=== PATIENT | female | born 1975 | race Caucasian/White ===

== ENCOUNTER → 2017-11-24 12:06 | Outpatient (CLI) | payer BC, SELFPAY ==
--- NOTE | 2017-11-24 | DI.US.S_ITS ---
PROCEDURE: US PELVIC COMPLETE INDICATIONS: PELVIC PAIN TECHNIQUE: Real-time scanning was performed of the pelvic organs, with image documentation. Additional endovaginal scanning was necessary due to incomplete visualization of the adnexal and endometrial structures by transabdominal scanning. COMPARISON: [facility], [place], PELVIC COMPLETE, 08/08/2012, 13:40. [facility], [place], PELVIC COMPLETE, 08/11/2012, 14:07. [facility], [place], PELVIC COMPLETE, 12/27/2015, 8:00. FINDINGS: Transabdominal scanning: Limited scanning through the kidneys shows no hydronephrosis. No pathologic free abdominal or pelvic fluid. Endovaginal scanning: Uterus: Uterus is normal in size at 11.2 x 8 x 9 cm. The endometrial stripe is not well seen, secondary to the patient's fibroids. Hypoechoic uterine lesions are seen, which are attributed to fibroids. They measure as follows: Posterior mid uterus, 2.2 x 1.6 x 2.8 cm Mid anterior uterus, 5.2 x 4.7 x 5.1 cm Mid anterior uterus, 2.5 x 1.7 x 1.9 cm. Ovaries: Neither ovary can be seen. No adnexal masses are seen. IMPRESSION: Uterine fibroids are seen, which are similar to the prior examination. Dictated by: Jose Alberto Walker M.D. on 11/24/2017 at 12:17 Approved by: Jose Albetro Walker M.D. on 11/24/2017 at 12:20
== END ==
PROVIDERS: Family Provider Naturopath; PCP Nurse Practitioner Family; Visit Provider Naturopath
DX: D25.9 Leiomyoma of uterus, unspecified (principal); R10.2 Pelvic and perineal pain
CPT/HCPCS: 76830; 76856

== ENCOUNTER → 2018-11-18 15:24 | Outpatient (CLI) | payer BC, SELFPAY ==
[2018-11-18 19:42] LABS: Add Manual Diff / Slide Review NO; Basophils Absolute Auto 0 /uL (0-100); Basophils Percent Auto 0.6 % (0-2); Eosinophils Absolute Auto 100 /uL (0-450); Eosinophils Percent Auto 0.9 % (2-4); Hematocrit 39.1 % (36-46); Hemoglobin 13.4 g/dL (12.0-16.0); Lymphocytes Absolute Auto 2100 /uL (1100-4500); Mean Corpuscular HGB Conc 34.3 % (30-36); Mean Corpuscular Hemoglobin 31.9 PG (26-34); Mean Corpuscular Volume 92.9 fL (80-100); Monocytes Absolute Auto 400 /uL (0-900); Monocytes Percent Auto 6.5 % (3-14); Neutrophils Absolute Auto 3600 /uL (1500-7000); Platelet Count 209 X10^3/uL (150-400); Red Blood Cell Count 4.21 X10^6/uL (4.0-5.2); Red Cell Distribution Width 12.6 % (11.6-14.8); White Blood Cell Count 6.3 X10^3/uL (4.5-11.0)
[2018-11-18 20:17] LABS: Free T3, Triiodothyronine Free 3.22 pg/mL (2.77-5.27); Free T4, Direct Thyroxine 1.08 ng/dL (0.78-2.19)
[2018-11-18 20:31] LABS: Thyroid Stimulating Hormone 2.65 uIU/mL (0.47-4.68)
[2018-11-18 20:35] LABS: Ferritin 42.1 ng/mL (6.27-137)
[2018-11-22 15:54] LABS: Thyroid Peroxidase Antibodies 2 IU/mL (< 9)
== END ==
PROVIDERS: PCP Naturopath; Visit Provider Naturopath
DX: K59.00 Constipation, unspecified (principal); R53.83 Other fatigue; Z13.29 Encounter for screening for other suspected endocrine disorder
CPT/HCPCS: 36415; 82728; 84439; 84443; 84481; 85025; 86376

== ENCOUNTER 2018-12-01 14:35 | Emergency (ER) | payer BC, SELFPAY ==
[2018-12-01 14:37] VITALS: BP 148/78; PULSE 85; RESP 20; TEMP 36.2; O2SAT 100; BMI 20.9
--- NOTE | 2018-12-01 14:58 | DI.US.S_ITS ---
PROCEDURE: US ABDOMEN COMPLETE INDICATIONS: ABDOMINAL PAIN TECHNIQUE: Real-time scanning was performed of the abdominal and retroperitoneal organs, with image documentation. COMPARISON: None. FINDINGS: Liver: Liver is normal in size and only mildly heterogeneous in echotexture, likely due to fatty infiltration. Gallbladder: The gallbladder is free of inflammation or calculus. Biliary ducts: Intrahepatic bile ducts are non-dilated. Extrahepatic bile duct caliber measures 3.2-4.2 mm. Normal is 6-7 mm or less in diameter, or 10 mm or less post-cholecystectomy. Pancreas: Visualized portions of the pancreas are sonographically normal. Spleen: Spleen is normal in size and homogeneous in echotexture. Kidneys: Kidneys are normal in size and echotexture. Right kidney measures 10.1 cm long; left kidney measures 11.1 cm long. No hydronephrosis or nephrolithiasis. No solid masses. Aorta: Visualized aorta is normal in caliber at less than 3 cm. Iliacs: Proximal common iliac arteries are normal in caliber at less than 2.5 cm. IVC: Intrahepatic inferior vena cava is patent. Miscellaneous: No free abdominal fluid. IMPRESSION: Quality visualization is somewhat limited by presence of prominent bowel gas. No ascites is found. There is a mild degree of increased echotexture of the liver parenchyma, likely due to mild fatty infiltration. No biliary distention is found. Given the presence of relatively extensive bowel gas if there are clinical signs and symptoms of underlying infection or neoplasm supplementing this ultrasound with contrast-enhanced CT scanning either now or electively may become necessary. Dictated by: Nguyễn Rodriguez M.D. on 12/01/2018 at 16:53 Approved by: Nguyễn Rodriguez M.D. on 12/01/2018 at 16:55
[2018-12-01 15:01] LABS: Add Manual Diff / Slide Review NO; Basophils Absolute Auto 0 /uL (0-100); Basophils Percent Auto 0.5 % (0-2); Eosinophils Absolute Auto 100 /uL (0-450); Eosinophils Percent Auto 0.8 % (2-4); Hemoglobin 13.5 g/dL (12.0-16.0); Lymphocytes Absolute Auto 1600 /uL (1100-4500); Lymphocytes Percent Auto 27.2 % (25-40); Mean Corpuscular HGB Conc 34.5 % (30-36); Mean Corpuscular Volume 92.7 fL (80-100); Monocytes Absolute Auto 600 /uL (0-900); Monocytes Percent Auto 9.4 % (3-14); Neutrophils Absolute Auto 3700 /uL (1500-7000); Neutrophils Percent Auto 62.1 % (50-75); Platelet Count 228 X10^3/uL (150-400); Red Blood Cell Count 4.21 X10^6/uL (4.0-5.2); Red Cell Distribution Width 13.1 % (11.6-14.8)
[2018-12-01 15:06] LABS: Bacteria Urine None Seen; WBC Urine None Seen (0-5/HPF)
[2018-12-01 15:12] LABS: Alanine Aminotransferase 32 IU/L (9-52); Albumin 4.3 g/dL (3.5-5.0); Albumin Globulin Ratio 1.4 (1.0-2.8); Alkaline Phosphatase 49 U/L (38-126); Aspartate Aminotransferase 33 IU/L (14-36); BUN Creatinine Ratio 15.7 (6-22); Bilirubin Total 0.6 mg/dL (0.2-1.3); Blood Urea Nitrogen 11 mg/dL (7-17); Calcium 9.4 mg/dL (8.4-10.2); Carbon Dioxide 23 mmol/L (22-32); Chloride 106 mmol/L (98-107); Estimated Glomerular Filt Rate > 60.0 mL/min (>60); Glucose 102 mg/dL (70-100); HEMOLYSIS < 15 (0-50); Lipase 76 U/L (23-300); Potassium 3.8 mmol/L (3.4-5.1); Sodium 141 mmol/L (137-145); Total Protein 7.3 g/dL (6.3-8.2)
[2018-12-01 15:13] LABS: Amylase 83 U/L (30-110)
[2018-12-01 15:15] LABS: RBC Urine 1-5/HPF (0-5/HPF); Squamous Epithelial Cell Urine 0-1 /HPF (0-5/HPF)
[2018-12-01 15:16] LABS: Culture Indicated Urine Cult Not Indicated
[2018-12-01 15:16] LABS: PTT Partial Thromboplastin Tim 27 SECONDS (26.4-36.2)
[2018-12-01] MEDS: PANTOPRAZOLE 40 MG VIAL IV (15:58)
[2018-12-01] MEDS: ONDANSETRON 4 MG/2 ML INJ IV (15:58)
[2018-12-01] MEDS: MORPHINE 4 MG/ML INJ IV (15:58)
[2018-12-01] MEDS: SODIUM CHLORIDE 0.9% 1,000 ML 1000 ML IV (15:59)
[2018-12-01] MEDS: MAG HYDROX/ALUMINUM/SIMETH SUS 20 ML, LIDOCAINE VISCOUS 2% 15 ML PO (15:59)
--- NOTE | 2018-12-01 17:01 | DI.CT.S_ITS ---
PROCEDURE: CT ABDOMEN PELVIS W CON INDICATIONS: abd pain TECHNIQUE: After the administration of intravenous contrast, 5 mm thick sections acquired from the diaphragm to the symphysis. 5 mm coronal and sagittal reformats were acquired. For radiation dose reduction, the following was used: automated exposure control, adjustment of mA and/or kV according to patient size. COMPARISON: Abdominal ultrasound earlier today, pelvic ultrasound 11/24/2017. FINDINGS: Image quality: Excellent. ABDOMEN: Lung bases: Lung bases are clear. Heart size is normal. Solid organs: Liver is normal in size and enhancement. Subcentimeter cyst or hemangioma in segment 7. Gallbladder is unremarkable. Biliary system is non dilated. Pancreas enhances normally. Spleen is normal in size and enhancement. No adrenal nodules. Kidneys demonstrate normal size and enhancement, without hydronephrosis. Peritoneum and bowel: Bowel loops demonstrate normal wall thickness and caliber. No free fluid or air. Nodes and vessels: No retroperitoneal or mesenteric adenopathy by size criteria. Aorta and inferior vena cava are normal in size. Miscellaneous: No ventral hernias. PELVIS: Genitourinary: Large fibroid uterus measuring 11.1 x 10.4 x 9.9 cm, ( and ). Many of the fibroids are pedunculated. Urinary bladder is mostly decompressed. No significant free fluid. Ovaries appear unremarkable. Miscellaneous: No inguinal hernias or adenopathy. Bones: No suspicious bony lesions. No vertebral body compression fractures. IMPRESSION: 1. No acute inflammatory process identified. No free fluid. 2. Large fibroid uterus. Several of the fibroids are pedunculated. Pedunculated fibroids are at risk for torsion and could be a source of pain. Dictated by: Robert Hawkins M.D. on 12/01/2018 at 17:27 Approved by: Robert Hawkins M.D. on 12/01/2018 at 17:37
[2018-12-01] MEDS: KETOROLAC 60 MG/2 ML VIAL 30 MG IV (18:28)
[2018-12-01 18:40] VITALS: BP 137/78; PULSE 70; O2SAT 100
--- NOTE | 2018-12-01 20:54 | ED.ABDPAIN ---
HPI - Abdominal Pain <JEREMIE Tejeda-BC - Last Filed: 12/01/18 21:00> General Chief Complaint: Abdominal Pain Stated Complaint: stomach pain Time Seen by Provider: 12/01/18 14:55 Source: patient and family Mode of arrival: ambulatory Limitations: no limitations History of Present Illness HPI narrative: The patient is a 43-year-old female nonsmoker with history of gastrointestinal issues who presents with a chief complaint of abdominal pain. She states that her pain got worse at 11:00 a.m. pot, but she has had a chronically. She states that the pain is all over her abdomen. She denies any dysuria urgency or frequency. She states her last bowel movement was this morning. She states she has a history of ?sluggish gallbladder and there is an ultrasound that has not been ordered yet. She denies any current nausea vomiting or diarrhea. She states that the pain is centered periumbilical. She states that she feels very gassy. Related Data Home Medications Medication Instructions Recorded Confirmed cholecalciferol (vitamin D3) 2,000 unit PO QDAY #0 07/11/12 [Vitamin D3] ibuprofen 800 mg PO TID PRN 12/01/18 12/01/18 norethindrone ac-eth estradiol 1 tab PO DAILY 12/01/18 12/01/18 Previous Rx's Medication Instructions Recorded hydrocodone-acetaminophen [[place]] 1 tab PO Q4-6H PRN #7 tab 12/01/18 ketorolac 10 mg PO TID PRN #20 tab 12/01/18 ondansetron 4 mg PO Q6H PRN #20 tab 12/01/18 Allergies Allergy/AdvReac Type Severity Reaction Status Date / Time No Known Drug Allergies Allergy Verified 12/01/18 14:41 Review of Systems <MONAE TejedaBC - Last Filed: 12/01/18 21:00> Review of Systems GENERAL: Denies chills, fatigue, malaise, fever, sweats. HEENT: Denies sinus pain, ear pain, sore throat, difficulty swallowing, dizziness. RESPIRATORY: Denies dyspnea, cough, wheezing, hemoptysis, sputum. CARDIOVASCULAR: Denies chest pain, palpitations, orthopnea, edema, GASTROINTESTINAL: see HPI : Denies dysuria, frequency, incontinence, hematuria, urinary retention. MUSCULOSKELETAL: denies weakness, joint pain, or bony pain SKIN: Denies rash, skin lesions, or other NEUROLOGIC: Denies weakness, headache, numbness, change in speech, confusion, seizures, incoordination. PSYCHIATRIC: No concerning psychosocial issues. 12 point review of systems is negative except for those stated above PFSH <MARY Tejeda - Last Filed: 12/01/18 21:00> Surgical History (Updated 08/10/17 @ 06:09 by Conversion Provider) Status post surgery (09/23/12) Social History Smoking Status: Never smoker Social History Smoking Status: Never smoker Exam <MARY Tejeda - Last Filed: 12/01/18 21:00> Narrative Exam Narrative: GENERAL: This is a well-nourished, well-developed patient, appears uncomfortable HEAD: Atraumatic. Normocephalic. No temporal or scalp tenderness. EYES: Pupils equal round and reactive. Extraocular motions intact. No scleral icterus. No injection or drainage. ENT: Nose without bleeding, purulent drainage or septal hematoma. Throat without erythema, tonsillar hypertrophy or exudate. Uvula midline. Airway patent. NECK: Trachea midline. No JVD or lymphadenopathy. Supple, nontender, no meningeal signs. CARDIOVASCULAR: Regular rate and rhythm without murmurs, gallops, or rubs. RESPIRATORY: Clear to auscultation. Breath sounds equal bilaterally. No wheezes, rales, or rhonchi. No cough. No increased respiratory effort. No accessory muscle use. GASTROINTESTINAL: Abdomen soft, diffusely tender nondistended. No hepato-splenomegaly, or palpable masses. No guarding. Active bowel sounds all 4 quadrants EXTREMITIES: No clubbing, cyanosis, or edema. No joint tenderness, effusion, or edema noted. BACK: Nontender without deformity or crepitance. No flank tenderness. NEURO: AOx3. SKIN: No rash or erythema. Initial Vital Signs Initial Vital Signs: Vital Signs Temperature 97.1 F L 12/01/18 14:37 Pulse Rate 85 12/01/18 14:37 Respiratory Rate 20 12/01/18 14:37 Blood Pressure 148/78 H 12/01/18 14:37 Pulse Oximetry 100 12/01/18 14:37 <Marquita Vance DO - Last Filed: 12/02/18 18:44> Initial Vital Signs Initial Vital Signs: Vital Signs Temperature 97.1 F L 12/01/18 14:37 Pulse Rate 85 12/01/18 14:37 Respiratory Rate 20 12/01/18 14:37 Blood Pressure 148/78 H 12/01/18 14:37 Pulse Oximetry 100 12/01/18 14:37 Course <JEREMIE Tejeda-BC - Last Filed: 12/01/18 21:00> Orders Ordered: Discontinued Medications Al Hydrox/Mg Hydrox/Simethicone 20 ml/ Lidocaine HCl 15 ml 0 ml PO NOW ONE Stop: 12/01/18 15:50 Last Admin: 12/01/18 15:59 Dose: 30 ml Sodium Chloride (Normal Saline 0.9%) 1,000 mls @ 1,000 mls/hr IV BOLUS PRN PRN Reason: Fluid replacement Last Infusion: 12/01/18 18:21 Dose: 0 mls/hr Admin: 12/01/18 15:59 Dose: 1,000 mls/hr Ketorolac Tromethamine (Toradol) 30 mg IV NOW ONE Stop: 12/01/18 17:52 Last Admin: 12/01/18 18:28 Dose: 30 mg Morphine Sulfate (Morphine) 4 mg IV NOW ONE Stop: 12/01/18 15:50 Last Admin: 12/01/18 15:58 Dose: 4 mg Ondansetron HCl (Zofran) 4 mg IV NOW ONE Stop: 12/01/18 15:50 Last Admin: 12/01/18 15:58 Dose: 4 mg Pantoprazole Sodium (Protonix) 40 mg IV NOW ONE Stop: 12/01/18 15:37 Last Admin: 12/01/18 15:58 Dose: 40 mg Vital Signs - 8 hr 12/01/18 14:37 12/01/18 18:40 Temperature 97.1 F L Pulse Rate 85 70 Respiratory Rate 20 Blood Pressure 148/78 H 137/78 Pulse Oximetry 100 100 <Marquita Vance DO - Last Filed: 12/02/18 18:44> Orders Ordered: Discontinued Medications Al Hydrox/Mg Hydrox/Simethicone 20 ml/ Lidocaine HCl 15 ml 0 ml PO NOW ONE Stop: 12/01/18 15:50 Last Admin: 12/01/18 15:59 Dose: 30 ml Sodium Chloride (Normal Saline 0.9%) 1,000 mls @ 1,000 mls/hr IV BOLUS PRN PRN Reason: Fluid replacement Last Infusion: 12/01/18 18:21 Dose: 0 mls/hr Admin: 12/01/18 15:59 Dose: 1,000 mls/hr Ketorolac Tromethamine (Toradol) 30 mg IV NOW ONE Stop: 12/01/18 17:52 Last Admin: 12/01/18 18:28 Dose: 30 mg Morphine Sulfate (Morphine) 4 mg IV NOW ONE Stop: 12/01/18 15:50 Last Admin: 12/01/18 15:58 Dose: 4 mg Ondansetron HCl (Zofran) 4 mg IV NOW ONE Stop: 12/01/18 15:50 Last Admin: 12/01/18 15:58 Dose: 4 mg Pantoprazole Sodium (Protonix) 40 mg IV NOW ONE Stop: 12/01/18 15:37 Last Admin: 12/01/18 15:58 Dose: 40 mg Vital Signs - 8 hr 12/01/18 14:37 12/01/18 18:40 Temperature 97.1 F L Pulse Rate 85 70 Respiratory Rate 20 Blood Pressure 148/78 H 137/78 Pulse Oximetry 100 100 MDM - Abdominal Pain <JEREMIE Tejeda- - Last Filed: 12/01/18 21:00> Lab Data Result diagrams: 12/01/18 14:50 12/01/18 14:50 Lab Results 12/01/18 12/01/18 12/01/18 Range/Units 14:50 14:50 14:50 WBC 6.0 (4.5-11.0) X10^3/uL RBC 4.21 (4.0-5.2) X10^6/uL Hgb 13.5 (12.0-16.0) g/dL Hct 39.0 (36-46) % MCV 92.7 (80-100) fL MCH 32.0 (26-34) PG MCHC 34.5 (30-36) % RDW 13.1 (11.6-14.8) % Plt Count 228 (150-400) X10^3/uL Neut % (Auto) 62.1 (50-75) % Lymph % (Auto) 27.2 (25-40) % [place] % (Auto) 9.4 (3-14) % Eos % (Auto) 0.8 L (2-4) % Baso % (Auto) 0.5 (0-2) % Neut # (Auto) 3700 (2433-0659) /uL Lymph # (Auto) 1600 (1173-4280) /uL [place] # (Auto) 600 (0-900) /uL Eos # (Auto) 100 (0-450) /uL Baso # (Auto) 0 (0-100) /uL PT 11.0 (10.1-12.7) SECONDS INR 1.0 (0.9-1.3) APTT 27 (26.4-36.2) SECONDS Sodium 141 (137-145) mmol/L Potassium 3.8 (3.4-5.1) mmol/L Chloride 106 (98-107) mmol/L Carbon Dioxide 23 (22-32) mmol/L BUN 11 (7-17) mg/dL Creatinine 0.70 (0.52-1.04) mg/dL Estimated GFR > 60.0 (>60) mL/min BUN/Creatinine Ratio 15.7 (6-22) Glucose 102 H (70-100) mg/dL Calcium 9.4 (8.4-10.2) mg/dL Total Bilirubin 0.6 (0.2-1.3) mg/dL AST 33 (14-36) IU/L ALT 32 (9-52) IU/L Alkaline Phosphatase 49 (38-126) U/L Total Protein 7.3 (6.3-8.2) g/dL Albumin 4.3 (3.5-5.0) g/dL Globulin 3.0 (1.7-4.1) g/dL Albumin/Globulin Ratio 1.4 (1.0-2.8) Amylase (30-110) U/L Lipase 76 (23-300) U/L Urine RBC (0-5/HPF) Urine WBC (0-5/HPF) Ur Squamous Epith Cells (0-5/HPF) Urine Bacteria (None) Ur Culture Indicated? 12/01/18 12/01/18 Range/Units 14:50 14:54 WBC (4.5-11.0) X10^3/uL RBC (4.0-5.2) X10^6/uL Hgb (12.0-16.0) g/dL Hct (36-46) % MCV (80-100) fL MCH (26-34) PG MCHC (30-36) % RDW (11.6-14.8) % Plt Count (150-400) X10^3/uL Neut % (Auto) (50-75) % Lymph % (Auto) (25-40) % [place] % (Auto) (3-14) % Eos % (Auto) (2-4) % Baso % (Auto) (0-2) % Neut # (Auto) (4021-9298) /uL Lymph # (Auto) (8087-0044) /uL [place] # (Auto) (0-900) /uL Eos # (Auto) (0-450) /uL Baso # (Auto) (0-100) /uL PT (10.1-12.7) SECONDS INR (0.9-1.3) APTT (26.4-36.2) SECONDS Sodium (137-145) mmol/L Potassium (3.4-5.1) mmol/L Chloride (98-107) mmol/L Carbon Dioxide (22-32) mmol/L BUN (7-17) mg/dL Creatinine (0.52-1.04) mg/dL Estimated GFR (>60) mL/min BUN/Creatinine Ratio (6-22) Glucose (70-100) mg/dL Calcium (8.4-10.2) mg/dL Total Bilirubin (0.2-1.3) mg/dL AST (14-36) IU/L ALT (9-52) IU/L Alkaline Phosphatase (38-126) U/L Total Protein (6.3-8.2) g/dL Albumin (3.5-5.0) g/dL Globulin (1.7-4.1) g/dL Albumin/Globulin Ratio (1.0-2.8) Amylase 83 (30-110) U/L Lipase (23-300) U/L Urine RBC 1-5/hpf (0-5/HPF) Urine WBC None seen (0-5/HPF) Ur Squamous Epith Cells 0-1 /hpf (0-5/HPF) Urine Bacteria None seen (None) Ur Culture Indicated? Cult not indicated Point of care testing: Point of Care Testing Test Results Negative Urine Dip Bedside Urine Glucose Negative Bedside Urine Bilirubin - Negative Bedside Urine Ketone - Negative Urine Specific [place] 1.010 Bedside Urine Occult Blood ++ Bedside Urine pH 6.5 Bedside Urine Protein - Negative Bedside Urine Urobilinogen - Negative Bedside Urine Nitrite - Negative Bedside Urine Leukocytes - Negative Esterase Imaging Data CT scan - abdomen: Radiologist's impression: [address] [address] [address] Scan Report Signed Patient: Emy Sierra FMR#: [id number] : 1975Acct:[id number] Age/Sex: 43 / FDate of Service: 12/01/18 Loc: ED Accession Number: [id number] Procedure: CT abdomen pelvis w con Ordering Provider: Marquita Chapman [employer] PROCEDURE: CT ABDOMEN PELVIS W CON INDICATIONS: abd pain TECHNIQUE: After the administration of intravenous contrast, 5 mm thick sections acquired from the diaphragm to the symphysis. 5 mm coronal and sagittal reformats were acquired. For radiation dose reduction, the following was used: automated exposure control, adjustment of mA and/or kV according to patient size. COMPARISON: Abdominal ultrasound earlier today, pelvic ultrasound 11/24/2017. FINDINGS: Image quality: Excellent. ABDOMEN: Lung bases: Lung bases are clear. Heart size is normal. Solid organs: Liver is normal in size and enhancement. Subcentimeter cyst or hemangioma in segment 7. Gallbladder is unremarkable. Biliary system is non dilated. Pancreas enhances normally. Spleen is normal in size and enhancement. No adrenal nodules. Kidneys demonstrate normal size and enhancement, without hydronephrosis. Peritoneum and bowel: Bowel loops demonstrate normal wall thickness and caliber. No free fluid or air. Nodes and vessels: No retroperitoneal or mesenteric adenopathy by size criteria. Aorta and inferior vena cava are normal in size. Miscellaneous: No ventral hernias. PELVIS: Genitourinary: Large fibroid uterus measuring 11.1 x 10.4 x 9.9 cm, ( and ). Many of the fibroids are pedunculated. Urinary bladder is mostly decompressed. No significant free fluid. Ovaries appear unremarkable. Miscellaneous: No inguinal hernias or adenopathy. Bones: No suspicious bony lesions. No vertebral body compression fractures. IMPRESSION: 1. No acute inflammatory process identified. No free fluid. 2. Large fibroid uterus. Several of the fibroids are pedunculated. Pedunculated fibroids are at risk for torsion and could be a source of pain. Dictated by: Robert Hawkins M.D. on 12/01/2018 at 17:27 Approved by: Robert Hawkins M.D. on 12/01/2018 at 17:37 US - abdomen: Radiologist's impression: Emy Sierra F 43 F 1975 [place] [address] Ultrasound Report Signed Patient: Emy Sierra FMR#: [id number] : 1975Acct:[id number] Age/Sex: 43 / FDate of Service: 12/01/18 Loc: ED Accession Number: [id number] Procedure: US abdomen complete Ordering Provider: Marquita Chapman PROCEDURE: US ABDOMEN COMPLETE INDICATIONS: ABDOMINAL PAIN TECHNIQUE: Real-time scanning was performed of the abdominal and retroperitoneal organs, with image documentation. COMPARISON: None. FINDINGS: Liver: Liver is normal in size and only mildly heterogeneous in echotexture, likely due to fatty infiltration. Gallbladder: The gallbladder is free of inflammation or calculus. Biliary ducts: Intrahepatic bile ducts are non-dilated. Extrahepatic bile duct caliber measures 3.2-4.2 mm. Normal is 6-7 mm or less in diameter, or 10 mm or less post-cholecystectomy. Pancreas: Visualized portions of the pancreas are sonographically normal. Spleen: Spleen is normal in size and homogeneous in echotexture. Kidneys: Kidneys are normal in size and echotexture. Right kidney measures 10.1 cm long; left kidney measures 11.1 cm long. No hydronephrosis or nephrolithiasis. No solid masses. Aorta: Visualized aorta is normal in caliber at less than 3 cm. Iliacs: Proximal common iliac arteries are normal in caliber at less than 2.5 cm. IVC: Intrahepatic inferior vena cava is patent. Miscellaneous: No free abdominal fluid. IMPRESSION: Quality visualization is somewhat limited by presence of prominent bowel gas. No ascites is found. There is a mild degree of increased echotexture of the liver parenchyma, likely due to mild fatty infiltration. No biliary distention is found. Given the presence of relatively extensive bowel gas if there are clinical signs and symptoms of underlying infection or neoplasm supplementing this ultrasound with contrast-enhanced CT scanning either now or electively may become necessary. Dictated by: Nguyễn Rodriguez M.D. on 12/01/2018 at 16:53 Approved by: Nguyễn Rodriguez M.D. on 12/01/2018 at 16:55 [facility] Narrative Medical decision making narrative: The patient is a 43-year-old female who presents with a chief complaint of abdominal pain. She was concerned about a gallbladder, but there is no evidence of QA cystitis on ultrasound. I did obtain a CT abdomen pelvis, which shows multiple uterine fibroids. The patient was not surprised as she has a history thereof. I did offer to order pelvic ultrasound, to evaluate this closely. However the patient declined. It is reassuring that she has clean urine, of leukocytosis. I discussed at length follow up with primary care provider. Discussed going back to the ER for any acute concerns such as severe pain, no acute down fluids etc. Patient has no questions or concerns upon discharge and states understanding. She is nontoxic appearing and hemodynamically stable throughout her stay in the ER <Marquita Vance, DO - Last Filed: 12/02/18 18:44> Lab Data Lab Results 12/01/18 12/01/18 12/01/18 Range/Units 14:50 14:50 14:50 WBC 6.0 (4.5-11.0) X10^3/uL RBC 4.21 (4.0-5.2) X10^6/uL Hgb 13.5 (12.0-16.0) g/dL Hct 39.0 (36-46) % MCV 92.7 (80-100) fL MCH 32.0 (26-34) PG MCHC 34.5 (30-36) % RDW 13.1 (11.6-14.8) % Plt Count 228 (150-400) X10^3/uL Neut % (Auto) 62.1 (50-75) % Lymph % (Auto) 27.2 (25-40) % [place] % (Auto) 9.4 (3-14) % Eos % (Auto) 0.8 L (2-4) % Baso % (Auto) 0.5 (0-2) % Neut # (Auto) 3700 (8897-9422) /uL Lymph # (Auto) 1600 (1013-3373) /uL [place] # (Auto) 600 (0-900) /uL Eos # (Auto) 100 (0-450) /uL Baso # (Auto) 0 (0-100) /uL PT 11.0 (10.1-12.7) SECONDS INR 1.0 (0.9-1.3) APTT 27 (26.4-36.2) SECONDS Sodium 141 (137-145) mmol/L Potassium 3.8 (3.4-5.1) mmol/L Chloride 106 (98-107) mmol/L Carbon Dioxide 23 (22-32) mmol/L BUN 11 (7-17) mg/dL Creatinine 0.70 (0.52-1.04) mg/dL Estimated GFR > 60.0 (>60) mL/min BUN/Creatinine Ratio 15.7 (6-22) Glucose 102 H (70-100) mg/dL Calcium 9.4 (8.4-10.2) mg/dL Total Bilirubin 0.6 (0.2-1.3) mg/dL AST 33 (14-36) IU/L ALT 32 (9-52) IU/L Alkaline Phosphatase 49 (38-126) U/L Total Protein 7.3 (6.3-8.2) g/dL Albumin 4.3 (3.5-5.0) g/dL Globulin 3.0 (1.7-4.1) g/dL Albumin/Globulin Ratio 1.4 (1.0-2.8) Amylase (30-110) U/L Lipase 76 (23-300) U/L Urine RBC (0-5/HPF) Urine WBC (0-5/HPF) Ur Squamous Epith Cells (0-5/HPF) Urine Bacteria (None) Ur Culture Indicated? 12/01/18 12/01/18 Range/Units 14:50 14:54 WBC (4.5-11.0) X10^3/uL RBC (4.0-5.2) X10^6/uL Hgb (12.0-16.0) g/dL Hct (36-46) % MCV (80-100) fL MCH (26-34) PG MCHC (30-36) % RDW (11.6-14.8) % Plt Count (150-400) X10^3/uL Neut % (Auto) (50-75) % Lymph % (Auto) (25-40) % [place] % (Auto) (3-14) % Eos % (Auto) (2-4) % Baso % (Auto) (0-2) % Neut # (Auto) (9825-6916) /uL Lymph # (Auto) (5016-0932) /uL [place] # (Auto) (0-900) /uL Eos # (Auto) (0-450) /uL Baso # (Auto) (0-100) /uL PT (10.1-12.7) SECONDS INR (0.9-1.3) APTT (26.4-36.2) SECONDS Sodium (137-145) mmol/L Potassium (3.4-5.1) mmol/L Chloride (98-107) mmol/L Carbon Dioxide (22-32) mmol/L BUN (7-17) mg/dL Creatinine (0.52-1.04) mg/dL Estimated GFR (>60) mL/min BUN/Creatinine Ratio (6-22) Glucose (70-100) mg/dL Calcium (8.4-10.2) mg/dL Total Bilirubin (0.2-1.3) mg/dL AST (14-36) IU/L ALT (9-52) IU/L Alkaline Phosphatase (38-126) U/L Total Protein (6.3-8.2) g/dL Albumin (3.5-5.0) g/dL Globulin (1.7-4.1) g/dL Albumin/Globulin Ratio (1.0-2.8) Amylase 83 (30-110) U/L Lipase (23-300) U/L Urine RBC 1-5/hpf (0-5/HPF) Urine WBC None seen (0-5/HPF) Ur Squamous Epith Cells 0-1 /hpf (0-5/HPF) Urine Bacteria None seen (None) Ur Culture Indicated? Cult not indicated Point of care testing: Point of Care Testing Test Results Negative Urine Dip Bedside Urine Glucose Negative Bedside Urine Bilirubin - Negative Bedside Urine Ketone - Negative Urine Specific [place] 1.010 Bedside Urine Occult Blood ++ Bedside Urine pH 6.5 Bedside Urine Protein - Negative Bedside Urine Urobilinogen - Negative Bedside Urine Nitrite - Negative Bedside Urine Leukocytes - Negative Esterase Discharge Plan Departure Patient Disposition: Home Clinical Impression: Fibroid, uterine Qualifiers: Uterine leiomyoma location: unspecified location Qualified Code(s): D25.9 - Leiomyoma of uterus, unspecified Abdominal pain Qualifiers: Abdominal location: generalized Qualified Code(s): R10.84 - Generalized abdominal pain Discharge Date/Time: 12/01/18 18:41 Interventions: ED Discharge Assessment Last Done: 12/01/18 18:40 Instructions: Facts About Fibroids, Uterine Fibroids, DI for Uterine Fibroids, DI for Abdominal Pain-Adult Activity Restrictions/Additional Instructions: The ultrasound of her gallbladder came back significant for bowel gas. Your abdominal CT shows no acute inflammatory process, no small-bowel obstruction, etc. However the CT does show a large fibroid uterus. I have given you small prescriptions of pain medication and nausea medication. Please follow up with her primary care provider. I also suggest that you follow-up with your OBGYN. Be aware the [place] can be constipating or sedating. Please do not combine the Toradol with any other NSAIDs such as ibuprofen or Aleve. Please come back to the emergency department for any acute concerns such as severe pain, inability keep down fluids etc. Prescriptions: New hydrocodone-acetaminophen [[place]] 5-325 mg tablet 1 tab PO Q4-6H PRN (Reason: pain) Qty: 7 RF: 0 ketorolac 10 mg tablet 10 mg PO TID PRN (Reason: pain) Qty: 20 RF: 0 ondansetron 4 mg tablet,disintegrating 4 mg PO Q6H PRN (Reason: nausea and vomiting) Qty: 20 RF: 0 No Action cholecalciferol (vitamin D3) [Vitamin D3] 2,000 UNIT capsule 2,000 unit PO QDAY Qty: 0 RF: 0 ibuprofen 800 mg tablet 800 mg PO TID PRN (Reason: pain) RF: 0 norethindrone ac-eth estradiol 1-20 mg-mcg tablet 1 tab PO DAILY RF: 0 Referrals: Tiffani Gray ND [Primary Care Provider] - <Marquita Vance DO - Last Filed: 12/02/18 18:44> Cosign ED Attending Cosignature Attestation: I was immediately available in the department for consultation. This documentation has been reviewed and I agree with assessment and plan. Supervised by Marquita Vance, DO
--- NOTE | 2018-12-01 21:00 | ED_ITS ---
HPI - Abdominal Pain <JEREMIE Tejeda-BC - Last Filed: 12/01/18 21:00> General Chief Complaint: Abdominal Pain Stated Complaint: stomach pain Time Seen by Provider: 12/01/18 14:55 Source: patient and family Mode of arrival: ambulatory Limitations: no limitations History of Present Illness HPI narrative: The patient is a 43-year-old female nonsmoker with history of gastrointestinal issues who presents with a chief complaint of abdominal pain. She states that her pain got worse at 11:00 a.m. pot, but she has had a chronically. She states that the pain is all over her abdomen. She denies any dysuria urgency or frequency. She states her last bowel movement was this morning. She states she has a history of ?sluggish gallbladder and there is an ultrasound that has not been ordered yet. She denies any current nausea vomiting or diarrhea. She states that the pain is centered periumbilical. She states that she feels very gassy. Related Data Home Medications Medication Instructions Recorded Confirmed cholecalciferol (vitamin D3) 2,000 unit PO QDAY #0 07/11/12 [Vitamin D3] ibuprofen 800 mg PO TID PRN 12/01/18 12/01/18 norethindrone ac-eth estradiol 1 tab PO DAILY 12/01/18 12/01/18 Previous Rx's Medication Instructions Recorded hydrocodone-acetaminophen [Newnan] 1 tab PO Q4-6H PRN #7 tab 12/01/18 ketorolac 10 mg PO TID PRN #20 tab 12/01/18 ondansetron 4 mg PO Q6H PRN #20 tab 12/01/18 Allergies Allergy/AdvReac Type Severity Reaction Status Date / Time No Known Drug Allergies Allergy Verified 12/01/18 14:41 Review of Systems <MONAE TejedaBC - Last Filed: 12/01/18 21:00> Review of Systems GENERAL: Denies chills, fatigue, malaise, fever, sweats. HEENT: Denies sinus pain, ear pain, sore throat, difficulty swallowing, dizziness. RESPIRATORY: Denies dyspnea, cough, wheezing, hemoptysis, sputum. CARDIOVASCULAR: Denies chest pain, palpitations, orthopnea, edema, GASTROINTESTINAL: see HPI : Denies dysuria, frequency, incontinence, hematuria, urinary retention. MUSCULOSKELETAL: denies weakness, joint pain, or bony pain SKIN: Denies rash, skin lesions, or other NEUROLOGIC: Denies weakness, headache, numbness, change in speech, confusion, seizures, incoordination. PSYCHIATRIC: No concerning psychosocial issues. 12 point review of systems is negative except for those stated above PFSH <MARY Tejeda - Last Filed: 12/01/18 21:00> Surgical History (Updated 08/10/17 @ 06:09 by Conversion Provider) Status post surgery (09/23/12) Social History Smoking Status: Never smoker Social History Smoking Status: Never smoker Exam <MARY Tejeda - Last Filed: 12/01/18 21:00> Narrative Exam Narrative: GENERAL: This is a well-nourished, well-developed patient, appears uncomfortable HEAD: Atraumatic. Normocephalic. No temporal or scalp tenderness. EYES: Pupils equal round and reactive. Extraocular motions intact. No scleral icterus. No injection or drainage. ENT: Nose without bleeding, purulent drainage or septal hematoma. Throat without erythema, tonsillar hypertrophy or exudate. Uvula midline. Airway patent. NECK: Trachea midline. No JVD or lymphadenopathy. Supple, nontender, no meningeal signs. CARDIOVASCULAR: Regular rate and rhythm without murmurs, gallops, or rubs. RESPIRATORY: Clear to auscultation. Breath sounds equal bilaterally. No wheezes, rales, or rhonchi. No cough. No increased respiratory effort. No accessory muscle use. GASTROINTESTINAL: Abdomen soft, diffusely tender nondistended. No hepato- splenomegaly, or palpable masses. No guarding. Active bowel sounds all 4 quadrants EXTREMITIES: No clubbing, cyanosis, or edema. No joint tenderness, effusion, or edema noted. BACK: Nontender without deformity or crepitance. No flank tenderness. NEURO: AOx3. SKIN: No rash or erythema. Initial Vital Signs Initial Vital Signs: Vital Signs Temperature 97.1 F L 12/01/18 14:37 Pulse Rate 85 12/01/18 14:37 Respiratory Rate 20 12/01/18 14:37 Blood Pressure 148/78 H 12/01/18 14:37 Pulse Oximetry 100 12/01/18 14:37 <Marquita Vance DO - Last Filed: 12/02/18 18:44> Initial Vital Signs Initial Vital Signs: Vital Signs Temperature 97.1 F L 12/01/18 14:37 Pulse Rate 85 12/01/18 14:37 Respiratory Rate 20 12/01/18 14:37 Blood Pressure 148/78 H 12/01/18 14:37 Pulse Oximetry 100 12/01/18 14:37 Course <JEREMIE Tejeda-BC - Last Filed: 12/01/18 21:00> Orders Ordered: Discontinued Medications Al Hydrox/Mg Hydrox/Simethicone 20 ml/ Lidocaine HCl 15 ml 0 ml PO NOW ONE Stop: 12/01/18 15:50 Last Admin: 12/01/18 15:59 Dose: 30 ml Sodium Chloride (Normal Saline 0.9%) 1,000 mls @ 1,000 mls/hr IV BOLUS PRN PRN Reason: Fluid replacement Last Infusion: 12/01/18 18:21 Dose: 0 mls/hr Admin: 12/01/18 15:59 Dose: 1,000 mls/hr Ketorolac Tromethamine (Toradol) 30 mg IV NOW ONE Stop: 12/01/18 17:52 Last Admin: 12/01/18 18:28 Dose: 30 mg Morphine Sulfate (Morphine) 4 mg IV NOW ONE Stop: 12/01/18 15:50 Last Admin: 12/01/18 15:58 Dose: 4 mg Ondansetron HCl (Zofran) 4 mg IV NOW ONE Stop: 12/01/18 15:50 Last Admin: 12/01/18 15:58 Dose: 4 mg Pantoprazole Sodium (Protonix) 40 mg IV NOW ONE Stop: 12/01/18 15:37 Last Admin: 12/01/18 15:58 Dose: 40 mg Vital Signs - 8 hr 12/01/18 14:37 12/01/18 18:40 Temperature 97.1 F L Pulse Rate 85 70 Respiratory Rate 20 Blood Pressure 148/78 H 137/78 Pulse Oximetry 100 100 <Marquita Vance DO - Last Filed: 12/02/18 18:44> Orders Ordered: Discontinued Medications Al Hydrox/Mg Hydrox/Simethicone 20 ml/ Lidocaine HCl 15 ml 0 ml PO NOW ONE Stop: 12/01/18 15:50 Last Admin: 12/01/18 15:59 Dose: 30 ml Sodium Chloride (Normal Saline 0.9%) 1,000 mls @ 1,000 mls/hr IV BOLUS PRN PRN Reason: Fluid replacement Last Infusion: 12/01/18 18:21 Dose: 0 mls/hr Admin: 12/01/18 15:59 Dose: 1,000 mls/hr Ketorolac Tromethamine (Toradol) 30 mg IV NOW ONE Stop: 12/01/18 17:52 Last Admin: 12/01/18 18:28 Dose: 30 mg Morphine Sulfate (Morphine) 4 mg IV NOW ONE Stop: 12/01/18 15:50 Last Admin: 12/01/18 15:58 Dose: 4 mg Ondansetron HCl (Zofran) 4 mg IV NOW ONE Stop: 12/01/18 15:50 Last Admin: 12/01/18 15:58 Dose: 4 mg Pantoprazole Sodium (Protonix) 40 mg IV NOW ONE Stop: 12/01/18 15:37 Last Admin: 12/01/18 15:58 Dose: 40 mg Vital Signs - 8 hr 12/01/18 14:37 12/01/18 18:40 Temperature 97.1 F L Pulse Rate 85 70 Respiratory Rate 20 Blood Pressure 148/78 H 137/78 Pulse Oximetry 100 100 MDM - Abdominal Pain <JEREMIE Tejeda- - Last Filed: 12/01/18 21:00> Lab Data Result diagrams: 12/01/18 14:50 12/01/18 14:50 Lab Results 12/01/18 12/01/18 12/01/18 Range/Units 14:50 14:50 14:50 WBC 6.0 (4.5-11.0) X10^3/uL RBC 4.21 (4.0-5.2) X10^6/uL Hgb 13.5 (12.0-16.0) g/dL Hct 39.0 (36-46) % MCV 92.7 (80-100) fL MCH 32.0 (26-34) PG MCHC 34.5 (30-36) % RDW 13.1 (11.6-14.8) % Plt Count 228 (150-400) X10^3/uL Neut % (Auto) 62.1 (50-75) % Lymph % (Auto) 27.2 (25-40) % [place] % (Auto) 9.4 (3-14) % Eos % (Auto) 0.8 L (2-4) % Baso % (Auto) 0.5 (0-2) % Neut # (Auto) 3700 (7414-5525) /uL Lymph # (Auto) 1600 (5863-1261) /uL [place] # (Auto) 600 (0-900) /uL Eos # (Auto) 100 (0-450) /uL Baso # (Auto) 0 (0-100) /uL PT 11.0 (10.1-12.7) SECONDS INR 1.0 (0.9-1.3) APTT 27 (26.4-36.2) SECONDS Sodium 141 (137-145) mmol/L Potassium 3.8 (3.4-5.1) mmol/L Chloride 106 (98-107) mmol/L Carbon Dioxide 23 (22-32) mmol/L BUN 11 (7-17) mg/dL Creatinine 0.70 (0.52-1.04) mg/dL Estimated GFR > 60.0 (>60) mL/min BUN/Creatinine Ratio 15.7 (6-22) Glucose 102 H (70-100) mg/dL Calcium 9.4 (8.4-10.2) mg/dL Total Bilirubin 0.6 (0.2-1.3) mg/dL AST 33 (14-36) IU/L ALT 32 (9-52) IU/L Alkaline Phosphatase 49 (38-126) U/L Total Protein 7.3 (6.3-8.2) g/dL Albumin 4.3 (3.5-5.0) g/dL Globulin 3.0 (1.7-4.1) g/dL Albumin/Globulin Ratio 1.4 (1.0-2.8) Amylase (30-110) U/L Lipase 76 (23-300) U/L Urine RBC (0-5/HPF) Urine WBC (0-5/HPF) Ur Squamous Epith Cells (0-5/HPF) Urine Bacteria (None) Ur Culture Indicated? 12/01/18 12/01/18 Range/Units 14:50 14:54 WBC (4.5-11.0) X10^3/uL RBC (4.0-5.2) X10^6/uL Hgb (12.0-16.0) g/dL Hct (36-46) % MCV (80-100) fL MCH (26-34) PG MCHC (30-36) % RDW (11.6-14.8) % Plt Count (150-400) X10^3/uL Neut % (Auto) (50-75) % Lymph % (Auto) (25-40) % [place] % (Auto) (3-14) % Eos % (Auto) (2-4) % Baso % (Auto) (0-2) % Neut # (Auto) (2733-2350) /uL Lymph # (Auto) (9249-5565) /uL [place] # (Auto) (0-900) /uL Eos # (Auto) (0-450) /uL Baso # (Auto) (0-100) /uL PT (10.1-12.7) SECONDS INR (0.9-1.3) APTT (26.4-36.2) SECONDS Sodium (137-145) mmol/L Potassium (3.4-5.1) mmol/L Chloride (98-107) mmol/L Carbon Dioxide (22-32) mmol/L BUN (7-17) mg/dL Creatinine (0.52-1.04) mg/dL Estimated GFR (>60) mL/min BUN/Creatinine Ratio (6-22) Glucose (70-100) mg/dL Calcium (8.4-10.2) mg/dL Total Bilirubin (0.2-1.3) mg/dL AST (14-36) IU/L ALT (9-52) IU/L Alkaline Phosphatase (38-126) U/L Total Protein (6.3-8.2) g/dL Albumin (3.5-5.0) g/dL Globulin (1.7-4.1) g/dL Albumin/Globulin Ratio (1.0-2.8) Amylase 83 (30-110) U/L Lipase (23-300) U/L Urine RBC 1-5/hpf (0-5/HPF) Urine WBC None seen (0-5/HPF) Ur Squamous Epith Cells 0-1 /hpf (0-5/HPF) Urine Bacteria None seen (None) Ur Culture Indicated? Cult not indicated Point of care testing: Point of Care Testing Test Results Negative Urine Dip Bedside Urine Glucose Negative Bedside Urine Bilirubin - Negative Bedside Urine Ketone - Negative Urine Specific [place] 1.010 Bedside Urine Occult Blood ++ Bedside Urine pH 6.5 Bedside Urine Protein - Negative Bedside Urine Urobilinogen - Negative Bedside Urine Nitrite - Negative Bedside Urine Leukocytes - Negative Esterase Imaging Data CT scan - abdomen: Radiologist's impression: [address] [address] [address] Scan Report Signed Patient: Emy Sierra FMR#: [id number] : 1975Acct:[id number] Age/Sex: 43 / FDate of Service: 12/01/18 Loc: ED Accession Number: [id number] Procedure: CT abdomen pelvis w con Ordering Provider: Marquita Chapman [employer]BC PROCEDURE: CT ABDOMEN PELVIS W CON INDICATIONS: abd pain TECHNIQUE: After the administration of intravenous contrast, 5 mm thick sections acquired from the diaphragm to the symphysis. 5 mm coronal and sagittal reformats were acquired. For radiation dose reduction, the following was used: automated exposure control, adjustment of mA and/or kV according to patient size. COMPARISON: Abdominal ultrasound earlier today, pelvic ultrasound 11/24/2017. FINDINGS: Image quality: Excellent. ABDOMEN: Lung bases: Lung bases are clear. Heart size is normal. Solid organs: Liver is normal in size and enhancement. Subcentimeter cyst or hemangioma in segment 7. Gallbladder is unremarkable. Biliary system is non dilated. Pancreas enhances normally. Spleen is normal in size and enhancement. No adrenal nodules. Kidneys demonstrate normal size and enhancement, without hydronephrosis. Peritoneum and bowel: Bowel loops demonstrate normal wall thickness and caliber. No free fluid or air. Nodes and vessels: No retroperitoneal or mesenteric adenopathy by size criteria. Aorta and inferior vena cava are normal in size. Miscellaneous: No ventral hernias. PELVIS: Genitourinary: Large fibroid uterus measuring 11.1 x 10.4 x 9.9 cm, ( and ). Many of the fibroids are pedunculated. Urinary bladder is mostly decompressed. No significant free fluid. Ovaries appear unremarkable. Miscellaneous: No inguinal hernias or adenopathy. Bones: No suspicious bony lesions. No vertebral body compression fractures. IMPRESSION: 1. No acute inflammatory process identified. No free fluid. 2. Large fibroid uterus. Several of the fibroids are pedunculated. Pedunculated fibroids are at risk for torsion and could be a source of pain. Dictated by: Robert Hawkins M.D. on 12/01/2018 at 17:27 Approved by: Robert Hawkins M.D. on 12/01/2018 at 17:37 US - abdomen: Radiologist's impression: Emy Sierra F 43 F 1975 [place] [address] Ultrasound Report Signed Patient: Emy Sierra FMR#: [id number] : 1975Acct:[id number] Age/Sex: 43 / FDate of Service: 12/01/18 Loc: ED Accession Number: [id number] Procedure: US abdomen complete Ordering Provider: Marquita Chapman PROCEDURE: US ABDOMEN COMPLETE INDICATIONS: ABDOMINAL PAIN TECHNIQUE: Real-time scanning was performed of the abdominal and retroperitoneal organs, with image documentation. COMPARISON: None. FINDINGS: Liver: Liver is normal in size and only mildly heterogeneous in echotexture, likely due to fatty infiltration. Gallbladder: The gallbladder is free of inflammation or calculus. Biliary ducts: Intrahepatic bile ducts are non-dilated. Extrahepatic bile duct caliber measures 3.2-4.2 mm. Normal is 6-7 mm or less in diameter, or 10 mm or less post-cholecystectomy. Pancreas: Visualized portions of the pancreas are sonographically normal. Spleen: Spleen is normal in size and homogeneous in echotexture. Kidneys: Kidneys are normal in size and echotexture. Right kidney measures 10.1 cm long; left kidney measures 11.1 cm long. No hydronephrosis or nephrolithiasis. No solid masses. Aorta: Visualized aorta is normal in caliber at less than 3 cm. Iliacs: Proximal common iliac arteries are normal in caliber at less than 2.5 cm. IVC: Intrahepatic inferior vena cava is patent. Miscellaneous: No free abdominal fluid. IMPRESSION: Quality visualization is somewhat limited by presence of prominent bowel gas. No ascites is found. There is a mild degree of increased echotexture of the liver parenchyma, likely due to mild fatty infiltration. No biliary distention is found. Given the presence of relatively extensive bowel gas if there are clinical signs and symptoms of underlying infection or neoplasm supplementing this ultrasound with contrast-enhanced CT scanning either now or electively may become necessary. Dictated by: Nguyễn Rodriguez M.D. on 12/01/2018 at 16:53 Approved by: Nguyễn Rodriguez M.D. on 12/01/2018 at 16:55 [facility] Narrative Medical decision making narrative: The patient is a 43-year-old female who presents with a chief complaint of abdominal pain. She was concerned about a gallbladder, but there is no evidence of QA cystitis on ultrasound. I did obtain a CT abdomen pelvis, which shows multiple uterine fibroids. The patient was not surprised as she has a history thereof. I did offer to order pelvic ultrasound, to evaluate this closely. However the patient declined. It is reassuring that she has clean urine, of leukocytosis. I discussed at length follow up with primary care provider. Discussed going back to the ER for any acute concerns such as severe pain, no acute down fluids etc. Patient has no questions or concerns upon discharge and states understanding. She is nontoxic appearing and hemodynamically stable throughout her stay in the ER <Marquita Vance, DO - Last Filed: 12/02/18 18:44> Lab Data Lab Results 12/01/18 12/01/18 12/01/18 Range/Units 14:50 14:50 14:50 WBC 6.0 (4.5-11.0) X10^3/uL RBC 4.21 (4.0-5.2) X10^6/uL Hgb 13.5 (12.0-16.0) g/dL Hct 39.0 (36-46) % MCV 92.7 (80-100) fL MCH 32.0 (26-34) PG MCHC 34.5 (30-36) % RDW 13.1 (11.6-14.8) % Plt Count 228 (150-400) X10^3/uL Neut % (Auto) 62.1 (50-75) % Lymph % (Auto) 27.2 (25-40) % [place] % (Auto) 9.4 (3-14) % Eos % (Auto) 0.8 L (2-4) % Baso % (Auto) 0.5 (0-2) % Neut # (Auto) 3700 (7058-6647) /uL Lymph # (Auto) 1600 (7907-8313) /uL [place] # (Auto) 600 (0-900) /uL Eos # (Auto) 100 (0-450) /uL Baso # (Auto) 0 (0-100) /uL PT 11.0 (10.1-12.7) SECONDS INR 1.0 (0.9-1.3) APTT 27 (26.4-36.2) SECONDS Sodium 141 (137-145) mmol/L Potassium 3.8 (3.4-5.1) mmol/L Chloride 106 (98-107) mmol/L Carbon Dioxide 23 (22-32) mmol/L BUN 11 (7-17) mg/dL Creatinine 0.70 (0.52-1.04) mg/dL Estimated GFR > 60.0 (>60) mL/min BUN/Creatinine Ratio 15.7 (6-22) Glucose 102 H (70-100) mg/dL Calcium 9.4 (8.4-10.2) mg/dL Total Bilirubin 0.6 (0.2-1.3) mg/dL AST 33 (14-36) IU/L ALT 32 (9-52) IU/L Alkaline Phosphatase 49 (38-126) U/L Total Protein 7.3 (6.3-8.2) g/dL Albumin 4.3 (3.5-5.0) g/dL Globulin 3.0 (1.7-4.1) g/dL Albumin/Globulin Ratio 1.4 (1.0-2.8) Amylase (30-110) U/L Lipase 76 (23-300) U/L Urine RBC (0-5/HPF) Urine WBC (0-5/HPF) Ur Squamous Epith Cells (0-5/HPF) Urine Bacteria (None) Ur Culture Indicated? 12/01/18 12/01/18 Range/Units 14:50 14:54 WBC (4.5-11.0) X10^3/uL RBC (4.0-5.2) X10^6/uL Hgb (12.0-16.0) g/dL Hct (36-46) % MCV (80-100) fL MCH (26-34) PG MCHC (30-36) % RDW (11.6-14.8) % Plt Count (150-400) X10^3/uL Neut % (Auto) (50-75) % Lymph % (Auto) (25-40) % [place] % (Auto) (3-14) % Eos % (Auto) (2-4) % Baso % (Auto) (0-2) % Neut # (Auto) (3717-9411) /uL Lymph # (Auto) (4392-0630) /uL [place] # (Auto) (0-900) /uL Eos # (Auto) (0-450) /uL Baso # (Auto) (0-100) /uL PT (10.1-12.7) SECONDS INR (0.9-1.3) APTT (26.4-36.2) SECONDS Sodium (137-145) mmol/L Potassium (3.4-5.1) mmol/L Chloride (98-107) mmol/L Carbon Dioxide (22-32) mmol/L BUN (7-17) mg/dL Creatinine (0.52-1.04) mg/dL Estimated GFR (>60) mL/min BUN/Creatinine Ratio (6-22) Glucose (70-100) mg/dL Calcium (8.4-10.2) mg/dL Total Bilirubin (0.2-1.3) mg/dL AST (14-36) IU/L ALT (9-52) IU/L Alkaline Phosphatase (38-126) U/L Total Protein (6.3-8.2) g/dL Albumin (3.5-5.0) g/dL Globulin (1.7-4.1) g/dL Albumin/Globulin Ratio (1.0-2.8) Amylase 83 (30-110) U/L Lipase (23-300) U/L Urine RBC 1-5/hpf (0-5/HPF) Urine WBC None seen (0-5/HPF) Ur Squamous Epith Cells 0-1 /hpf (0-5/HPF) Urine Bacteria None seen (None) Ur Culture Indicated? Cult not indicated Point of care testing: Point of Care Testing Test Results Negative Urine Dip Bedside Urine Glucose Negative Bedside Urine Bilirubin - Negative Bedside Urine Ketone - Negative Urine Specific [place] 1.010 Bedside Urine Occult Blood ++ Bedside Urine pH 6.5 Bedside Urine Protein - Negative Bedside Urine Urobilinogen - Negative Bedside Urine Nitrite - Negative Bedside Urine Leukocytes - Negative Esterase Discharge Plan Departure Patient Disposition: Home Clinical Impression: Fibroid, uterine Qualifiers: Uterine leiomyoma location: unspecified location Qualified Code(s): D25.9 - Leiomyoma of uterus, unspecified Abdominal pain Qualifiers: Abdominal location: generalized Qualified Code(s): R10.84 - Generalized abdominal pain Discharge Date/Time: 12/01/18 18:41 Interventions: ED Discharge Assessment Last Done: 12/01/18 18:40 Instructions: Facts About Fibroids, Uterine Fibroids, DI for Uterine Fibroids, DI for Abdominal Pain-Adult Activity Restrictions/Additional Instructions: The ultrasound of her gallbladder came back significant for bowel gas. Your abdominal CT shows no acute inflammatory process, no small-bowel obstruction, etc. However the CT does show a large fibroid uterus. I have given you small prescriptions of pain medication and nausea medication. Please follow up with her primary care provider. I also suggest that you follow-up with your OBGYN. Be aware the [place] can be constipating or sedating. Please do not combine the Toradol with any other NSAIDs such as ibuprofen or Aleve. Please come back to the emergency department for any acute concerns such as severe pain, inability keep down fluids etc. Prescriptions: New hydrocodone-acetaminophen [Newnan] 5-325 mg tablet 1 tab PO Q4-6H PRN (Reason: pain) Qty: 7 RF: 0 ketorolac 10 mg tablet 10 mg PO TID PRN (Reason: pain) Qty: 20 RF: 0 ondansetron 4 mg tablet,disintegrating 4 mg PO Q6H PRN (Reason: nausea and vomiting) Qty: 20 RF: 0 No Action cholecalciferol (vitamin D3) [Vitamin D3] 2,000 UNIT capsule 2,000 unit PO QDAY Qty: 0 RF: 0 ibuprofen 800 mg tablet 800 mg PO TID PRN (Reason: pain) RF: 0 norethindrone ac-eth estradiol 1-20 mg-mcg tablet 1 tab PO DAILY RF: 0 Referrals: Tiffani Gray ND [Primary Care Provider] - <Marquita Vance DO - Last Filed: 12/02/18 18:44> Cosign ED Attending Cosignature Attestation: I was immediately available in the department for consultation. This documentation has been reviewed and I agree with assessment and plan. Supervised by Marquita Vance, DO
== END 2018-12-01 18:41 | disposition home or self-care (01) ==
PROVIDERS: Emergency Medicine; Emergency Provider Nurse Practitioner Family; PCP Naturopath
DX: D25.9 Leiomyoma of uterus, unspecified (principal); R10.84 Generalized abdominal pain
CPT/HCPCS: 36591; 74177; 76700; 80053; 81003; 81015; 81025; 82150; 83690; 85025; 85610; 85730; 96361; 96374; 96375; 99283; 99285; C9113; J1885; J2270; J2405

== ENCOUNTER → 2018-12-05 14:17 | Outpatient (CLI) | payer BC, SELFPAY ==
--- NOTE | 2018-12-05 | DI.US.S_ITS ---
PROCEDURE: US TRANSVAGINAL COMPARISON: [facility], US, US PELVIC COMPLETE, 11/24/2017, 12:18. INDICATIONS: LEIOMYOMA OF UTERUS, UNSPECIFIED FINDINGS: Uterus is enlarged measuring 12.3 x 5.0 7.9 cm. Endometrial complex normal in thickness measuring 7.5 mm. There are 3 intramural fibroids, with the largest 2 increased in size from prior examination measuring 7.9 x 6.3 x 6.2 cm and 6.0 x 4.5 x 5.0 cm. The smaller fibroid as not significant changed measuring 2.6 x 1.9 x 1.8 cm. 1.9 cm left follicular cyst; otherwise the ovaries are normal. IMPRESSION: Increase in size of 2 of the 3 intramural fibroids, largest measuring up to 7.9 cm. Dictated by: Demond Burger [facility] Interpreted: Nguyễn Rodriguez MD on 12/06/2018 at 13:10 Approved by: Nguyễn Rodriguez M.D. on 12/06/2018 at 14:24
== END ==
PROVIDERS: PCP Naturopath; Visit Provider Naturopath
DX: D25.9 Leiomyoma of uterus, unspecified (principal)
CPT/HCPCS: 76830

== ENCOUNTER → 2019-06-01 13:47 | Outpatient (ROUT) | payer SELFPAY ==
[2019-06-01 14:09] LABS: Appearance Urine UA CLEAR; Bilirubin Urine UA NEGATIVE (NEGATIVE); Color Urine UA YELLOW; Glucose Urine UA NEGATIVE (Negative); Ketones Urine UA NEGATIVE (NEGATIVE); Leukocyte Esterase Urine UA TRACE (NEGATIVE); Nitrite Urine UA NEGATIVE (Negative); Occult Blood Urine UA 3+ (Negative); Protein Urine UA NEGATIVE (Negative); Urobilinogen Urine UA 0.2 E.U./dL (0.2)
[2019-06-01 14:20] LABS: pH Urine UA 5.5 (4.5-8.0)
[2019-06-01 14:21] LABS: Bacteria Urine None Seen
[2019-06-01 14:24] LABS: Culture Indicated Urine Cult Not Indicated; RBC Urine 5-10/HPF (0-5/HPF); Squamous Epithelial Cell Urine 1-5 /HPF (0-5/HPF); WBC Urine 0-1/HPF (0-5/HPF)
== END ==
PROVIDERS: PCP Naturopath; Visit Provider Naturopath
DX: N30.01 Acute cystitis with hematuria (principal); R31.9 Hematuria, unspecified
CPT/HCPCS: 81003; 81015

== ENCOUNTER → 2019-06-21 16:24 | Outpatient (ROUT) | payer OTHER, SELFPAY ==
[2019-06-21 16:26] LABS: Bacteria Urine None Seen
[2019-06-21 19:13] LABS: Appearance Urine UA CLEAR; Bilirubin Urine UA NEGATIVE (NEGATIVE); Color Urine UA YELLOW; Glucose Urine UA NEGATIVE (Negative); Ketones Urine UA NEGATIVE (NEGATIVE); Leukocyte Esterase Urine UA NEGATIVE (NEGATIVE); Nitrite Urine UA NEGATIVE (Negative); Occult Blood Urine UA 1+ (Negative); Protein Urine UA NEGATIVE (Negative); Specific Gravity Urine UA <=1.005 (1.000-1.035); Urobilinogen Urine UA 0.2 E.U./dL (0.2)
[2019-06-21 20:10] LABS: Culture Indicated Urine Cult Not Indicated; RBC Urine 0-1/HPF (0-5/HPF); Squamous Epithelial Cell Urine 0-1 /HPF (0-5/HPF); WBC Urine 0-1/HPF (0-5/HPF); pH Urine UA 6.5 (4.5-8.0)
== END ==
PROVIDERS: PCP Naturopath; Visit Provider Naturopath
DX: N39.0 Urinary tract infection, site not specified (principal)
CPT/HCPCS: 81001

== ENCOUNTER → 2020-04-19 15:01 | Outpatient (CLI) | payer OTHER, SELFPAY ==
[2020-04-19] MEDS: COVID-19 VACC(MODERNA-1)/PF 100 MCG/0.5 ML VIAL IM (15:10)
== END ==
PROVIDERS: PCP Naturopath; Visit Provider Internal Medicine
DX: Z23 Encounter for immunization (principal)
CPT/HCPCS: 0011A; 91301

== ENCOUNTER → 2020-05-16 15:40 | Outpatient (CLI) | payer OTHER, SELFPAY ==
[2020-05-16] MEDS: COVID-19 VACC #2, MRNA(MOD) 100 MCG/0.5 ML VIAL IM (15:47)
== END ==
PROVIDERS: PCP Naturopath; Visit Provider Internal Medicine
DX: Z23 Encounter for immunization (principal)
CPT/HCPCS: 0012A; 91301

== ENCOUNTER → 2020-09-27 07:08 | Outpatient (CLI) | payer OTHER, SELFPAY ==
[2020-09-27 08:12] LABS: Add Manual Diff / Slide Review NO; Basophils Absolute Auto 0 /uL (0-100); Basophils Percent Auto 0.6 % (0-2); Eosinophils Absolute Auto 100 /uL (0-450); Eosinophils Percent Auto 1.6 % (2-4); Hematocrit 38.8 % (36-46); Lymphocytes Absolute Auto 1400 /uL (1100-4500); Lymphocytes Percent Auto 27.2 % (25-40); Mean Corpuscular HGB Conc 33.5 % (30-36); Mean Corpuscular Hemoglobin 31.2 PG (26-34); Mean Corpuscular Volume 93.3 fL (80-100); Monocytes Absolute Auto 600 /uL (0-900); Monocytes Percent Auto 11.4 % (3-14); Neutrophils Absolute Auto 3100 /uL (1500-7000); Neutrophils Percent Auto 59.2 % (50-75); Platelet Count 193 X10^3/uL (150-400); Red Blood Cell Count 4.16 X10^6/uL (4.0-5.2); White Blood Cell Count 5.3 X10^3/uL (4.5-11.0)
[2020-09-27 09:10] LABS: Alanine Aminotransferase 16 IU/L (<35); Albumin 4.1 g/dL (3.5-5.0); Albumin Globulin Ratio 1.5 (1.0-2.8); Alkaline Phosphatase 46 U/L (38-126); Aspartate Aminotransferase 28 IU/L (14-36); BUN Creatinine Ratio 16.4 (6-22); Bilirubin Total 0.3 mg/dL (0.2-1.3); Blood Urea Nitrogen 12 mg/dL (7-17); Calcium 9.4 mg/dL (8.4-10.2); Carbon Dioxide 24 mmol/L (22-32); Chloride 108 mmol/L (98-107); Cholesterol 179 mg/dL (140-199); Estimated Glomerular Filt Rate > 60.0 mL/min (>60); Globulin 2.7 g/dL (1.7-4.1); Glucose 104 mg/dL (70-100); HDL Cholesterol 60 mg/dL (40-60); HEMOLYSIS < 15 (0-50); LDL Cholesterol Calculated 107 mg/dL (<100); Potassium 4.2 mmol/L (3.4-5.1); Sodium 138 mmol/L (137-145); Total Protein 6.8 g/dL (6.3-8.2); Triglycerides 59 mg/dL (35-150)
[2020-09-27 09:41] LABS: Thyroid Stimulating Hormone 2.66 uIU/mL (0.47-4.68)
[2020-09-28 16:23] LABS: Deamidated Gliadin Ab IgA 3 units (0-19); Deamidated Gliadin Ab IgG 6 units (0-19); Immunoglobulin A,Qn 82 mg/dL (87-352); t-Transglutaminase IgA <2 U/mL (0-3)
== END ==
PROVIDERS: PCP Naturopath; Referring Provider Naturopath; Visit Provider Naturopath
DX: Z00.00 Encounter for general adult medical examination without abnormal findings (principal); R53.83 Other fatigue; Z13.811 Encounter for screening for lower gastrointestinal disorder
CPT/HCPCS: 36415; 80053; 80061; 82784; 83516; 84443; 85025

== ENCOUNTER → 2021-07-02 16:31 | Outpatient (CLI) | payer OTHER, SELFPAY ==
--- NOTE | 2021-07-02 | DI.RAD.S_ITS ---
PROCEDURE: XR LUMBAR SPINE 2-3V INDICATIONS: low back pain TECHNIQUE: 3 views of the lumbar spine were acquired. COMPARISON: [facility], , -SPINE 2-3 VIEWS, 05/03/2008, 14:38. FINDINGS: Bones: 5 [id number] vertebrae are present. There is normal bony alignment. No vertebral body compression fractures. No suspicious bony lesions. Soft tissues: Overlying bowel gas pattern is normal. No suspicious soft tissue calcifications. IMPRESSION: No acute osseous abnormality. If the symptoms persist, consider cross sectional imaging such as MRI or CT for further assessment. Dictated by: Alex Dee M.D. on 07/02/2021 at 17:55 Approved by: Alex Dee M.D. on 07/02/2021 at 17:56
== END ==
PROVIDERS: PCP Naturopath; Referring Provider Chiropractor; Visit Provider Chiropractor
DX: M54.50 Low back pain, unspecified (principal)
CPT/HCPCS: 72100

== ENCOUNTER → 2022-12-18 11:37 | Outpatient (CLI) | payer OTHER, SELFPAY ==
--- NOTE | 2022-12-18 11:39 | DI.RAD.S_ITS ---
PROCEDURE: XR FINGER RT MIN 2V INDICATIONS: Thumb injury TECHNIQUE: AP hand, 2 views of the 1st finger(s) acquired. COMPARISON: None. FINDINGS: Bones: No fractures or dislocations. No suspicious bony lesions. Soft tissues: No suspicious soft tissue calcifications. IMPRESSION: Mild 1st finger soft tissue swelling without fracture Approved by: Willie Santa M.D. on 12/18/2022 at 19:56
== END ==
PROVIDERS: PCP Naturopath; Referring Provider Nurse Practitioner Family; Visit Provider Nurse Practitioner Family
DX: S67.21XA Crushing injury of right hand, initial encounter (principal); M79.89 Other specified soft tissue disorders; X58.XXXA Exposure to other specified factors, initial encounter
CPT/HCPCS: 73140

== ENCOUNTER → 2023-03-09 16:46 | Outpatient (CLI) | payer OTHER, SELFPAY ==
[2023-03-09 18:24] LABS: Add Manual Diff / Slide Review NO; Basophils Absolute Auto 0 /uL (0-100); Basophils Percent Auto 0.7 % (0-2); Eosinophils Absolute Auto 100 /uL (0-450); Eosinophils Percent Auto 1.4 % (2-4); Hematocrit 39.7 % (36-46); Hemoglobin 13.6 g/dL (12.0-16.0); Lymphocytes Absolute Auto 1800 /uL (1100-4500); Lymphocytes Percent Auto 27.9 % (25-40); Mean Corpuscular HGB Conc 34.4 % (30-36); Mean Corpuscular Hemoglobin 31.7 PG (26-34); Mean Corpuscular Volume 92.2 fL (80-100); Monocytes Absolute Auto 500 /uL (0-900); Monocytes Percent Auto 7.7 % (3-14); Neutrophils Absolute Auto 4000 /uL (1500-7000); Neutrophils Percent Auto 62.3 % (50-75); Platelet Count 225 X10^3/uL (150-400); Red Cell Distribution Width 12.5 % (11.6-14.8); White Blood Cell Count 6.4 X10^3/uL (4.5-11.0)
[2023-03-09 18:38] LABS: Alanine Aminotransferase 21 IU/L (<35); Albumin 4.6 g/dL (3.5-5.0); Albumin Globulin Ratio 1.5 (1.0-2.8); Alkaline Phosphatase 56 U/L (38-126); Aspartate Aminotransferase 32 IU/L (14-36); BUN Creatinine Ratio 14.3 (6-22); Bilirubin Total 0.6 mg/dL (0.2-1.3); Blood Urea Nitrogen 11 mg/dL (7-17); Calcium 9.7 mg/dL (8.4-10.2); Carbon Dioxide 23 mmol/L (22-32); Chloride 104 mmol/L (98-107); Cholesterol 222 mg/dL (140-199); Estimated Glomerular Filt Rate > 60 mL/min (>60); Glucose 90 mg/dL (70-100); HDL Cholesterol 71 mg/dL (40-60); HEMOLYSIS < 15 (0-50); LDL Cholesterol Calculated 133 mg/dL (<100); Potassium 3.8 mmol/L (3.4-5.1); Sodium 136 mmol/L (137-145); Total Protein 7.6 g/dL (6.3-8.2); Triglycerides 89 mg/dL (35-150)
== END ==
PROVIDERS: PCP Naturopath; Referring Provider Naturopath; Visit Provider Naturopath
DX: Z00.00 Encounter for general adult medical examination without abnormal findings (principal); R53.83 Other fatigue
CPT/HCPCS: 36415; 80053; 80061; 84443; 85025

== ENCOUNTER → 2024-02-25 15:16 | Outpatient (CLI) | payer OTHER, SELFPAY ==
--- NOTE | 2024-02-25 15:16 | DI.MG.S_ITS ---
BILATERAL DIGITAL SCREENING MAMMOGRAM 3D/2D WITH CAD: 02/25/2024 CLINICAL: Routine screening. Comparison is made to exams dated: 02/17/2019 mammogram and 02/17/2019 ultrasound - MEDICINE. The breasts are extremely dense, which lowers the sensitivity of mammography (category d />75% glandular tissue). Current study was also evaluated with a Computer Aided Detection (CAD) system. No significant masses, calcifications, or other findings are seen in either breast. There has been no significant interval change. IMPRESSION: NEGATIVE There is no mammographic evidence of malignancy. A 1 year screening mammogram is recommended. Based on the Tyrer Cuzick model (a risk assessment model) the patient's lifetime risk is 18.4% and her 10 year risk is 3.7%. According to the ACR, ACS, and NCCN guidelines, an annual breast MRI exam along with mammogram is recommended if the patient's lifetime risk is 20% or greater. This exam was interpreted at Station ID: [id number]. NOTE: For mammograms, a report in lay terms will be sent to the patient. Approximately 15% of breast malignancies will not be visualized mammographically. In the management of a palpable breast mass, a negative mammogram must not discourage biopsy of a clinically suspicious lesion. Electronically Signed By: Camelia Mcnamara M.D., Ph.D. ayad/javier:02/26/2024 00:07:15 letter sent: Normal Exam ACR BI-RADS Category 1: Negative
== END ==
PROVIDERS: PCP Family Medicine; Referring Provider Naturopath; Visit Provider Naturopath
DX: Z12.31 Encounter for screening mammogram for malignant neoplasm of breast (principal); R92.343 Mammographic extreme density, bilateral breasts
CPT/HCPCS: 77063; 77067

== ENCOUNTER → 2024-07-24 13:29 | Outpatient (CLI) | payer OTHER, SELFPAY ==
--- NOTE | 2024-07-24 13:30 | DI.US.S_ITS ---
MM diagnostic mammo unilat RT, US breast RT limited: 07/24/2024 BI-RADS: 1 CLINICAL: 49-year old female for right diagnostic mammogram and right diagnostic breast ultrasound. Tyrer-Cuzick lifetime risk of 17.7%. No personal or first-degree family history of breast cancer. The patient reports a palpable abnormality (1 month) in the right breast. Clinical breast exam was performed by the patient's provider which listed a palpable at 10:30, 6 cm from the nipple corresponding to the patient's reported lump, and a second palpable at 7:00, 3 cm from the nipple (which the patient does not feel herself). PRIOR EXAMS 02/25/2024. MAMMOGRAPHY TECHNIQUE: 2D and 3D (tomosynthesis) digital mammographic views obtained, with additional images as needed for full coverage. Current study was also evaluated with a Computer Aided Detection (CAD) system. ULTRASOUND TECHNIQUE TARGETED Right Breast Ultrasound: Real-time ultrasound exam was performed focused to area of clinical and/or imaging concern. DENSITY Right: D. The breasts are extremely dense, which lowers the sensitivity of mammography. MAMMOGRAPHY FINDINGS Right (finding-1): Upper Outer at 10:30, 6 cm from nipple, Anterior depth: A skin marker was placed in the area of concern, and no mammographic abnormalities are identified or to account for clinicians' and patient's concern of a palpable lump. No suspicious mass, asymmetry, microcalcification, or other abnormality seen. Right (finding-2): Lower Outer at 7:00, 3 cm from nipple, Middle depth: There is no suspicious mammographic finding to account for clinicians' concern of a palpable lump. No suspicious mass, asymmetry, microcalcification, or other abnormality seen. ULTRASOUND FINDINGS Right (finding-1): Upper Outer at 10:30, 6 cm from nipple: Underlying the surface marker, there is no suspicious sonographic finding to account for clinicians' and patient's concern of a palpable lump. Clinical concern is explained by a prominent ridge of fibrous tissue. Right (finding-2): Lower Outer at 7:00, 3 cm from nipple: There is no suspicious sonographic finding to account for clinicians' concern of a palpable lump. IMPRESSION: Right * No evidence of malignancy. RECOMMENDATIONS Bilateral * Annual screening mammography. COMMENTS: Findings and recommendations were conveyed to the patient during today's evaluation. OVERALL ASSESSMENT CATEGORY BI-RADS-1: Negative. The [employer] recommends annual screening mammography beginning at age 40 for women with average risk of breast cancer. ELECTRONICALLY SIGNED: Sofie West M.D. on 07/24/2024 at 02:43:20 PM PT Interpreting Station ID: [id number]
== END ==
PROVIDERS: PCP Family Medicine; Referring Provider Physician Assistant; Visit Provider Physician Assistant
DX: N63.11 Unspecified lump in the right breast, upper outer quadrant (principal); N63.13 Unspecified lump in the right breast, lower outer quadrant; R92.343 Mammographic extreme density, bilateral breasts
CPT/HCPCS: 76642; 77065; G0279

== ENCOUNTER → 2024-07-29 09:45 | Outpatient (CLI) | payer OTHER, SELFPAY ==
[2024-07-29 10:31] LABS: Add Manual Diff / Slide Review NO; Basophils Absolute Auto 0 /uL (0-100); Basophils Percent Auto 0.7 % (0-2); Eosinophils Absolute Auto 100 /uL (0-450); Eosinophils Percent Auto 1.9 % (2-4); Hemoglobin 12.8 g/dL (12.0-16.0); Lymphocytes Absolute Auto 1600 /uL (1100-4500); Lymphocytes Percent Auto 31.6 % (25-40); Mean Corpuscular HGB Conc 34.7 % (30-36); Mean Corpuscular Hemoglobin 32.1 PG (26-34); Mean Corpuscular Volume 92.5 fL (80-100); Monocytes Absolute Auto 400 /uL (0-900); Monocytes Percent Auto 8.2 % (3-14); Neutrophils Absolute Auto 2900 /uL (1500-7000); Neutrophils Percent Auto 57.6 % (50-75); Platelet Count 224 X10^3/uL (150-400); Red Cell Distribution Width 13.4 % (11.6-14.8)
[2024-07-29 10:38] LABS: Alanine Aminotransferase 23 IU/L (<35); Albumin 4.2 g/dL (3.5-5.0); Albumin Globulin Ratio 1.8 (1.0-2.8); Alkaline Phosphatase 49 U/L (38-126); Aspartate Aminotransferase 28 IU/L (14-36); BUN Creatinine Ratio 20.8 (6-22); Bilirubin Total 0.6 mg/dL (0.2-1.3); Blood Urea Nitrogen 15 mg/dL (7-17); Calcium 9.2 mg/dL (8.4-10.2); Carbon Dioxide 23 mmol/L (22-32); Chloride 108 mmol/L (98-107); Cholesterol 192 mg/dL (140-199); Estimated Glomerular Filt Rate > 60 mL/min (>60); Globulin 2.4 g/dL (1.7-4.1); Glucose 98 mg/dL (70-100); HDL Cholesterol 55 mg/dL (40-60); HEMOLYSIS < 15 (0-50); LDL Cholesterol Calculated 124 mg/dL (<100); Potassium 4.6 mmol/L (3.4-5.1); Sodium 138 mmol/L (137-145); Total Protein 6.6 g/dL (6.3-8.2); Triglycerides 64 mg/dL (35-150)
[2024-07-29 10:55] LABS: Follicle Stimulating Hormone 2.37 mIU/mL; Luteinizing Hormone 3.54 mIU/mL
[2024-07-29 10:56] LABS: Free T3, Triiodothyronine Free 3.62 pg/mL (2.77-5.27)
[2024-07-29 11:09] LABS: Thyroid Stimulating Hormone 1.51 uIU/mL (0.47-4.68)
[2024-07-29 11:13] LABS: Ferritin 31 ng/mL (6-137)
[2024-07-30 06:10] LABS: Thyroid Peroxidase Antibodies 12 IU/mL (0-34)
== END ==
LOC: LAB 09:46
PROVIDERS: PCP Family Medicine; Referring Provider Naturopath; Visit Provider Naturopath
DX: Z00.00 Encounter for general adult medical examination without abnormal findings (principal); N95.9 Unspecified menopausal and perimenopausal disorder; R53.83 Other fatigue
CPT/HCPCS: 36415; 80053; 80061; 82728; 83001; 83002; 84439; 84443; 84481; 85025; 86376

== ENCOUNTER 2024-10-06 07:24 | Day surgery (SDC) | payer OTHER, SELFPAY ==
--- NOTE | 2024-10-06 | PATH_ITS ---
[facility] Accession Number: [id number] No. of containers..01 Tissue . 01 Material submitted: . colon - COLON, ASCENDING POLYP . 01 Diagnosis: COLON, ASCENDING POLYP: Tubular adenoma. [facility] 10/12/2024 1239 Local . 01 Electronically signed: . Rito Garrett MD, Pathologist NPI- [id number] . 01 Gross description: . COLON, ASCENDING POLYP: Received in formalin is 1 fragment(s) of de leon, soft tissue measuring 0.5 x 0.4 x 0.3 cm submitted entirely in 1 cassette(s) /[facility] 10/12/2024 1239 Local . 01 Pathologist provided ICD-10: D12.2 . 01 CPT . 559992 Specimen Comment: A courtesy copy of this report has been sent to [phone] Performed at: [address] [facility] [id number] MD Rito Garrett MD Phone: [phone]
[2024-10-06] MEDS: LACTATED RINGERS 1,000 ML 42 ML IV (07:38)
[2024-10-06 07:45] VITALS: BP 127/84; PULSE 68; RESP 15; TEMP 36.3; O2SAT 100
--- NOTE | 2024-10-06 08:12 | P.HP_ITS ---
History of Present Illness History of Present Illness Date Patient Seen: 10/06/24 Time Patient Seen: 08:12 Chief complaint: Screening Colonoscopy Narrative: Emy Sierra is a 49 year old woman here for her first screening colonoscopy. No family history of colon cancer. [facility] Medical History (Updated 10/06/24 @ 08:13 by Hunter Dyer MD) Uterine fibroid Surgical History (Updated 08/10/17 @ 06:09 by Conversion Provider) Status post surgery (09/23/12) Social History Smoking Status: Never smoker alcohol intake: current Meds Home Medications and Allergies Home Medications ?Medication ?Instructions ?Recorded ?Confirmed ?Type duloxetine 20 mg capsule,delayed 20 mg PO DAILY Anxiet y 02/25/24 10/06/24 History release methylphenidate HCl 27 mg 27 mg PO DAILY Improve atten tion 09/13/24 10/06/24 Rx tablet,extended release 24 hr #30 tabs estradiol 0.025 mg/24 hr 1 patch topical 2XW 10/06/24 10/06/24 History semiweekly transdermal patch progesterone micronized 100 mg 100 mg PO QPM 10/06/24 10/06/24 History capsule Allergies Allergy/AdvReac Type Severity Reaction Status Date / Time No Known Drug Allergies Allergy Verified 10/06/24 07:41 Exam Vital Signs (past 8 hours): - 10/06/24 07:45 Temperature 97.3 F L Pulse Rate 68 Respiratory Rate 15 Blood Pressure 127/84 Pulse Oximetry 100 Oxygen Delivery Method Room Air Oxygen Delivery Method Room Air Const General: healthy appearing Assessment & Plan Assessment and plan (1) Colon cancer screening: Status: Acute Plan Colonoscopy Time-Based Coding :: [TOTAL MINUTES] spent with patient and on the chart (including review of chart, obtaining history, exam, reviewing outside data, placing orders, documenting exam and treatment plan, and counseling patient) on [DATE]. [employer] Department Manager Document charge(s): No
[2024-10-06 08:48] VITALS: BP 108/64; PULSE 77; RESP 16; TEMP 36.7; O2SAT 100
--- NOTE | 2024-10-06 08:52 | PM.OP.COLON ---
Operative Date/Time/Diagnoses Date of procedure: 10/06/24 Time of procedure: 08:52 Pre-op diagnosis: Colon cancer screening Post-op diagnosis: same Procedure & Clinicians Study performed: Colonoscopy Same procedure(s) as scheduled: Yes Surgeon: Hunter Dyer Procedure Notes Procedure in detail: Surgeon: Hunter Dyer MD Anesthesia: Diana Garcia CRNA Procedure: The patient was brought to the endoscopy suite, placed in left lateral decubitus position. The patient was connected to monitoring devices. A time-out was performed. Sedation was administered. Once the patient was adequately sedated, a digital rectal exam was performed and was normal. The scope was then inserted and advanced to the cecum where the appendiceal orifice was identified and photographed. The scope was then slowly withdrawn over greater than 6 minutes. The mucosa was thoroughly inspected. There was a 3 mm and removed with a cold snare. No other abnormalities were found. The scope was retroflexed in the rectum. No other abnormalities were seen. The scope was straightened and removed. The patient was awakened and brought to recovery. Scope withdrawal time: 7 minutes Sedation time: 16 minutes EBL: 2 mL Findings: 3 mm ascending colon polyp Post-procedure Disposition: PACU
[2024-10-06 08:53] VITALS: BP 108/63; PULSE 73; RESP 25; O2SAT 100
[2024-10-06 08:58] VITALS: BP 108/75; PULSE 76; RESP 14; TEMP 36.3; O2SAT 100
[2024-10-06 09:03] VITALS: BP 107/71; PULSE 76; RESP 17; O2SAT 100
== END 2024-10-06 09:15 | disposition home or self-care (01) ==
PROVIDERS: PCP Family Medicine; Referring Provider Surgery; Visit Provider Surgery
PROC: 0DJD8ZZ Inspection of Lower Intestinal Tract, Via Natural or Artificial Opening Endoscopic (ICD-10-PCS; CPT 45378; principal; 2024-10-06 08:30)
DX: Z12.11 Encounter for screening for malignant neoplasm of colon (principal); D12.2 Benign neoplasm of ascending colon
CPT/HCPCS: 45385; J2704